=== PATIENT | male | born 1985 | race Caucasian/White ===

== ENCOUNTER 2024-06-11 14:40 | Emergency (ER) | payer OTHER ==
[~2024-06-11] VITALS: Ht 180.3 cm; Wt 98.0 kg
[2024-06-11 14:43] VITALS: BP 142/77; PULSE 90; RESP 18; TEMP 98; O2SAT 98
== END 2024-06-11 15:21 ==
LOC: ER 14:46
DX: M25.511 Pain in right shoulder (principal); M25.512 Pain in left shoulder; K21.9 Gastro-esophageal reflux disease without esophagitis
CPT/HCPCS: 99283